=== PATIENT | male | born 1955 | race Caucasian/White ===

== ENCOUNTER 2018-08-06 11:29 | Outpatient (CLI) | payer OTHER ==
--- NOTE | 2018-08-06 12:40 | RAD ---
RIGHT KNEE TWO VIEWS: Comparison: 02-22-15 FINDINGS: There is a donut shaped spacer device associated with the knee joint. This is similar to the prior ex amination. On the lateral view, slightly anterior displaced but similar to the previous study. There are antibiotic implants again noted in the suprapatellar joint space. Vascular calcifications are see n. IMPRESSION: Overall stable exam. POS: TPC
== END 2018-08-06 11:30 | disposition home or self-care (01) ==
LOC: BICRAD 11:29
PROVIDERS: ATTEND Internal Medicine
DX: Z02.71 Encounter for disability determination (principal)

== ENCOUNTER 2018-11-21 16:40 | Inpatient (IN) | payer SELFPAY ==
[2018-11-21] MEDS ORDERED: CEFAZOLIN 2 GM in Premix Bag 1 BAG IVPB SCH (18:15)
[2018-11-21] MEDS ORDERED: Vancomycin HCl 1 GM in Premix Bag 1 BAG IVPB SCH (18:15)
[2018-11-21] MEDS ORDERED: Morphine 4 MG/ML VIAL SLOW IVP PRN (19:31)
[2018-11-21] MEDS ORDERED: Dextrose 50% Abboject 50 ML SYRINGE SLOW IVP PRN (19:31)
[2018-11-21] MEDS ORDERED: Ondansetron ODT 4 MG TAB PO PRN (19:31)
[2018-11-21] MEDS ORDERED: Dextrose 5% in Water 1,000 ML IV PRN (19:31)
[2018-11-21] MEDS ORDERED: Ondansetron PF 4 MG/2 ML Vial IVP PRN (19:31)
[2018-11-21] MEDS ORDERED: hydrALAZINE 20 MG/ML VIAL SLOW IVP PRN (19:31)
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
--- NOTE | 2018-11-21 20:10 | RAD ---
Radiograph right knee 2 views: 11/21/2018 at 6:25 PM HISTORY: 63-year-old male with right knee pain after fall COMPARISON: 08/06/2018 FINDINGS: Large very dense disc shaped spacer between the distal femur and tibial plateau. Flattening, truncate d appearance of distal tibial articular surface. Sclerotic changes at articular surfaces of bone. Antibiotic beads in the supra patellar compartment. No acute fracture. No interval change. IMPRESSION: 1. No interval change since 08/06/2018. 2. Postsurgical changes and antibiotic impregnated objects.
[2018-11-21] MEDS: Famotidine 20 MG TAB PO SCH (20:43)
[2018-11-21] MEDS: Sodium Chloride 0.9% 1,000 ML IV SCH (20:44)
[2018-11-21] MEDS: Morphine 4 MG/ML VIAL SLOW IVP PRN (20:44)
[2018-11-21 22:51] VITALS: BMI 28.1
[2018-11-22] MEDS: Acetaminophen 1,000 MG in Premix Bag 1 BAG IVPB SCH ×4 (00:03→13:32)
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
[2018-11-22] MEDS: Ketorolac Tromethamine 30 MG/ML VIAL IVP SCH ×3 (05:46→13:33)
[2018-11-22] MEDS: Morphine 4 MG/ML VIAL SLOW IVP PRN (05:47)
[2018-11-22] MEDS: Sodium Chloride 0.9% 1,000 ML IV SCH ×2 (05:55→13:10)
[2018-11-22 06:04] LABS: #Basophils 0.1 thou/uL (0.0-0.2); #Eosinphils 0.4 thou/uL (0.0-0.7); #Lymphocytes 3.4 thou/uL (1.20-3.40); #Monocytes 0.9 thou/uL (0.11-0.59); #Neutrophils 4.1 thou/uL (1.40-6.50); %Basophils 0.7 % (0.0-1.0); %Eosinophils 4.6 % (0.0-10.0); %Lymphocytes 38.7 % (21.0-51.0); %Monocytes 9.9 % (0.0-10.0); %Neutrophils 46.1 % (42.0-75.0); Hemoglobin 13.5 g/dL (14.0-18.0); Mean Corpuscular HGB CONC 33.2 g/dL (32.0-36.0); Mean Corpuscular Volume 96.4 fL (78.0-98.0); Mean Platelet Volume 8.2 fL (7.4-10.4); Platelet Count 137 thou/uL (130-400); RBC Distribution Width 14.6 % (11.5-14.5); Red Blood Cell (RBC) Count 4.22 mill/uL (4.70-6.10); White Blood Cell (WBC) Count 8.8 thou/uL (4.8-10.8)
[2018-11-22 06:32] LABS: Anion Gap 12 mmol/L (10-20); BUN (Urea Nitrogen) 26 mg/dL (8.4-25.7); Calc. Creatinine Clearance 119 mL/min (70-130); Calcium 8.5 mg/dL (7.8-10.44); Carbon Dioxide 22 mmol/L (23-31); Chloride 107 mmol/L (98-107); Estimated GFR-MDRD Greater than 90; Glucose 86 mg/dL (80-115); Potassium 3.9 mmol/L (3.5-5.1); Sodium 137 mmol/L (136-145)
[2018-11-22] MEDS ORDERED: Fentanyl 250 MCG/5 ML VIAL ONE (06:54)
[2018-11-22] MEDS ORDERED: Midazolam HCl 2 mg/2 ml Vial ONE (06:54)
[2018-11-22 08:32] LABS: Magnesium 1.9 mg/dL (1.6-2.6); Phosphorus 3.9 mg/dL (2.3-4.7)
[2018-11-22] MEDS: Famotidine 20 MG TAB PO SCH ×2 (08:44→20:01)
[2018-11-22] MEDS ORDERED: Fentanyl 100 MCG/2 ML VIAL ONE (09:57)
[2018-11-22] MEDS ORDERED: Neomycin-Polymyxin 1 ML AMP ONE (10:04)
[2018-11-22] MEDS ORDERED: Promethazine HCl 25 MG/ML VIAL SLOW IVP PRN (11:56)
[2018-11-22] MEDS ORDERED: Ondansetron HCl/PF 4 MG/2 ML Vial IVP PRN (11:56)
[2018-11-22] MEDS ORDERED: Promethazine HCl 25 MG/ML VIAL IM PRN (11:56)
--- NOTE | 2018-11-22 12:14 | RAD ---
Radiograph pelvis one view: 11/22/2018 at 11:51 AM HISTORY: 63-year-old male status post hemiarthroplasty FINDINGS: Metallic prosthesis replacing the right femoral head and neck with stem that reaches junction between proximal and middle thirds of shaft. Lateral skin martínez and subcutaneous emphysema. Satisfactory position. Iliac wings excluded from [id number]. Sclerosis and lucent changes of left femoral head without flattening of femoral head. Left hip joint space maintained. No left-sided hip osteophytes. IMPRESSION: 1. Very recently status post right hip replacement arthroplasty. 2. Avascular necrosis of left femoral head.
--- NOTE | 2018-11-22 12:49 | RAD ---
RIGHT HIP 1 VIEW: HISTORY: Hemiarthroplasty. FINDINGS/IMPRESSION: There are postop changes of right femoral head prostheses placement. POS: OFF
[2018-11-22] MEDS: CEFAZOLIN 2 GM in Premix Bag 1 BAG IVPB SCH ×2 (14:28→20:01)
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
[2018-11-22] MEDS ORDERED: PROPOFOL 200 MG/20 ML VIAL ONE (15:30)
[2018-11-22] MEDS ORDERED: Rocuronium Bromide 10 MG/ML (10ML VIAL) ONE (15:30)
[2018-11-22] MEDS ORDERED: Glycopyrrolate 0.2 MG/ML 5 ML SYRINGE ONE (15:30)
[2018-11-22] MEDS ORDERED: PHENYLEPHRINE-NS 100 MCG/ML 10 ML SYRINGE ONE (15:30)
[2018-11-22] MEDS ORDERED: Lidocaine 1% PF 5 ML VIAL ONE (15:30)
[2018-11-22] MEDS ORDERED: traMADol HCl 50 MG TAB PO PRN (16:12)
[2018-11-22] MEDS ORDERED: Cyclobenzaprine 10 MG TAB PO PRN (16:30)
[2018-11-22] MEDS: Acetaminophen 500 MG TAB PO SCH ×2 (16:47→23:49)
[2018-11-22] MEDS: Ibuprofen 800 MG TAB PO SCH ×2 (17:34→23:59)
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
[2018-11-22] MEDS: traMADol HCl 50 MG TAB PO PRN (19:06)
[2018-11-22] MEDS: Senokot S 8.6-50 MG TAB PO SCH (20:01)
[2018-11-22] MEDS: Aspirin 81 mg Enteric Coated Tablet PO SCH (20:01)
[2018-11-23] MEDS: Acetaminophen 500 MG TAB PO SCH ×4 (03:38→22:50)
[2018-11-23] MEDS: traMADol HCl 50 MG TAB PO PRN ×4 (03:38→22:50)
[2018-11-23 05:55] LABS: #Eosinphils 0.3 thou/uL (0.0-0.7); #Lymphocytes 2.2 thou/uL (1.20-3.40); #Monocytes 0.9 thou/uL (0.11-0.59); #Neutrophils 4.7 thou/uL (1.40-6.50); %Basophils 0.5 % (0.0-1.0); %Eosinophils 3.8 % (0.0-10.0); %Monocytes 10.7 % (0.0-10.0); Hemoglobin 12.1 g/dL (14.0-18.0); Mean Corpuscular HGB CONC 32.8 g/dL (32.0-36.0); Mean Corpuscular Hemoglobin 31.7 pg (27.0-31.0); Mean Corpuscular Volume 96.8 fL (78.0-98.0); Mean Platelet Volume 7.6 fL (7.4-10.4); Platelet Count 127 thou/uL (130-400); RBC Distribution Width 14.3 % (11.5-14.5); Red Blood Cell (RBC) Count 3.81 mill/uL (4.70-6.10)
[2018-11-23 06:18] LABS: Anion Gap 11 mmol/L (10-20); BUN (Urea Nitrogen) 18 mg/dL (8.4-25.7); Calc. Creatinine Clearance 125 mL/min (70-130); Calcium 8.2 mg/dL (7.8-10.44); Carbon Dioxide 20 mmol/L (23-31); Chloride 106 mmol/L (98-107); Estimated GFR-MDRD Greater than 90; Glucose 80 mg/dL (80-115); Magnesium 1.6 mg/dL (1.6-2.6); Sodium 133 mmol/L (136-145)
[2018-11-23] MEDS ORDERED: Magnesium 2 GM/50 ML 2 GM in Premix Bag 1 BAG IVPB SCH (07:30)
[2018-11-23] MEDS ORDERED: PHOS-NAK 1 PKT PACK PO SCH (07:30)
[2018-11-23] MEDS: Ibuprofen 800 MG TAB PO SCH ×2 (08:24→16:34)
[2018-11-23] MEDS: Polyethylene Glycol 3350 17 GM Packet PO SCH (08:24)
[2018-11-23] MEDS: Senokot S 8.6-50 MG TAB PO SCH ×2 (08:24→20:44)
[2018-11-23] MEDS: Aspirin 81 mg Enteric Coated Tablet PO SCH ×2 (08:25→20:43)
[2018-11-23] MEDS: Famotidine 20 MG TAB PO SCH ×2 (08:25→20:43)
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
[2018-11-24] MEDS: Ibuprofen 800 MG TAB PO SCH ×3 (02:25→08:12)
[2018-11-24] MEDS: traMADol HCl 50 MG TAB PO PRN ×2 (04:36→10:34)
[2018-11-24] MEDS: Acetaminophen 500 MG TAB PO SCH ×2 (04:36→10:34)
[2018-11-24] MEDS: Polyethylene Glycol 3350 17 GM Packet PO SCH (08:11)
[2018-11-24] MEDS: Senokot S 8.6-50 MG TAB PO SCH (08:12)
[2018-11-24] MEDS: Aspirin 81 mg Enteric Coated Tablet PO SCH (08:12)
[2018-11-24] MEDS: Famotidine 20 MG TAB PO SCH (08:12)
[2018-11-24 14:47] VITALS: BP 125/75; TEMP 98.1
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
== END 2018-11-24 14:45 | disposition home or self-care (01) | DRG 470 ==
LOC: ERS 16:40 → SURG A 19:10
PROVIDERS: ADMIT Specialist; ATTEND Specialist
PROC: 0SRR0JA Replacement of Right Hip Joint, Femoral Surface with Synthetic Substitute, Uncemented, Open Approach (ICD-10-PCS; principal; 2018-11-22)
DX: S72.001A Fracture of unspecified part of neck of right femur, initial encounter for closed fracture (principal); J44.9 Chronic obstructive pulmonary disease, unspecified; V19.9XXA Pedal cyclist (driver) (passenger) injured in unspecified traffic accident, initial encounter; E11.9 Type 2 diabetes mellitus without complications; F17.210 Nicotine dependence, cigarettes, uncomplicated; E83.39 Other disorders of phosphorus metabolism; E83.42 Hypomagnesemia; Z91.14 Patient's other noncompliance with medication regimen
CPT/HCPCS: 36415; 36416; 72170; 80048; 83735; 84100; 85025; G0390; J0131; J0690; J1885; J2001; J2250; J2270; J2704; J3010; J3370; J3475

== ENCOUNTER 2020-06-18 13:31 | Outpatient (CLI) | payer OTHER ==
[2020-06-18 14:22] LABS: #Eosinphils 0.2 10x3/uL (0.0-0.5); #Monocytes 0.9 10x3/uL (0.0-1.1); #Neutrophils 4.2 10x3/uL (1.5-8.4); %Basophils 0.5 % (0.0-2.0); %Lymphocytes 39.9 % (18.0-47.0); %Monocytes 10.1 % (0.0-10.0); %Neutrophils 47.2 % (40.0-75.0); Hemoglobin 14.4 g/dL (14.0-18.0); Mean Corpuscular Hemoglobin 32.2 PG (27.0-33.0); Mean Corpuscular Volume 94.9 fl (80.0-100.0); Mean Platelet Volume 9.8 fl (7.4-10.4); Platelet Count 180 10x3/uL (130-400); RBC Distribution Width 13.5 % (11.5-14.5); Red Blood Cell (RBC) Count 4.47 10x6/uL (4.40-5.80); White Blood Cell (WBC) Count 8.8 10x3/uL (4.5-11.0)
[2020-06-18 14:41] LABS: Prothrombin Time 10.9 sec (9.5-12.1)
[2020-06-18 15:12] LABS: Anion Gap 16 mmol/L (10-20); BUN (Urea Nitrogen) 19 mg/dL (8.4-25.7); Calc. Creatinine Clearance 0 mL/min (70-130); Calcium 9.2 mg/dL (7.8-10.44); Carbon Dioxide 23 mmol/L (23-31); Chloride 102 mmol/L (98-107); Estimated GFR-MDRD 75; Glucose 183 mg/dL (80-115); Potassium 4.2 mmol/L (3.5-5.1); Sodium 137 mmol/L (136-145)
[2020-06-19 11:01] LABS: SARS-CoV-2 MS2 Positive; SARS-CoV-2 N Gene Negative; SARS-CoV-2 S Gene Negative; SARS-CoV-2 by NAA Not Detected (NotDetected); SARS-CoV-2 orf1ab Negative
== END 2020-06-18 13:32 | disposition home or self-care (01) ==
LOC: LABBT 13:31
PROVIDERS: ATTEND Orthopaedic Surgery
DX: Z01.812 Encounter for preprocedural laboratory examination (principal); Z20.828 Contact with and (suspected) exposure to other viral communicable diseases; M87.052 Idiopathic aseptic necrosis of left femur
CPT/HCPCS: 80048; 85025; 85610; 87081; 87635; U0003

== ENCOUNTER 2020-06-18 16:45 | Inpatient (IN) | payer OTHER ==
[2020-06-21 11:12] VITALS: BMI 28.0
[2020-06-22] MEDS ORDERED: Midazolam HCl 2 mg/2 ml Vial ONE ×2 (07:55→09:33)
[2020-06-22] MEDS ORDERED: Fentanyl 100 MCG/2 ML VIAL ONE ×3 (07:55→11:36)
[2020-06-22] MEDS ORDERED: Vancomycin 1.5 GRAM/300 ML BAG ONE (08:06)
[2020-06-22] MEDS ORDERED: Sodium Chloride 0.9% 100 ML ONE (08:06)
[2020-06-22] MEDS ORDERED: Tranexamic Acid 1,000 MG/10 ML VIAL ONE (08:06)
--- NOTE | 2020-06-22 08:43 | RAD ---
PA AND LATERAL VIEWS CHEST: HISTORY: Preoperative evaluation. FINDINGS: The heart size is normal. The lungs are expanded without focal areas of consolidation, pneumothorace s, or pleural effusions. There are mild degenerative changes in the spine. IMPRESSION: No radiographic evidence of acute cardiopulmonary process. POS: OFF
[2020-06-22] MEDS ORDERED: Bupivacaine 0.25% HCL 30 ML VIAL ONE (09:33)
[2020-06-22] MEDS ORDERED: Acetaminophen 500 MG TAB PO PRN (09:39)
[2020-06-22] MEDS ORDERED: Hydrocerin (Eucerin) Cream 120 gm Jar TOP PRN (09:45)
[2020-06-22] MEDS ORDERED: Promethazine HCl 25 MG SUPP PR PRN (09:45)
[2020-06-22] MEDS ORDERED: HYDROcodone/Acetaminophen 5/325 mg Tablet PO PRN ×2 (09:45)
[2020-06-22] MEDS ORDERED: diphenhydrAMINE 50 MG/ML VIAL IM PRN (09:45)
[2020-06-22] MEDS ORDERED: Naloxone HCl 0.4 mg/ml Vial IV PRN (09:45)
[2020-06-22] MEDS ORDERED: Promethazine HCl 25 MG/ML VIAL IM PRN ×3 (09:45→12:46)
[2020-06-22] MEDS ORDERED: Zolpidem Tartrate 5 MG TAB PO PRN ×2 (09:45→12:46)
[2020-06-22] MEDS ORDERED: Ondansetron PF 4 MG/2 ML Vial IVP PRN ×2 (09:45→12:46)
[2020-06-22] MEDS ORDERED: diphenhydrAMINE 50 MG/ML VIAL IVP PRN (09:45)
[2020-06-22] MEDS ORDERED: diphenhydrAMINE 25 MG CAP PO PRN ×2 (09:45→12:46)
[2020-06-22] MEDS ORDERED: traMADol HCl 50 MG TAB PO PRN ×3 (09:45→12:46)
[2020-06-22] MEDS ORDERED: Naloxone HCl 0.4 mg/ml Vial IVP PRN (09:45)
[2020-06-22] MEDS ORDERED: Ondansetron HCl/PF 4 MG/2 ML Vial IVP PRN (11:37)
[2020-06-22] MEDS ORDERED: Promethazine HCl 25 MG/ML VIAL SLOW IVP PRN (11:37)
[2020-06-22] MEDS ORDERED: Glycopyrrolate 0.2 MG/ML 5 ML SYRINGE ONE (11:56)
[2020-06-22] MEDS ORDERED: Ondansetron PF 4 MG/2 ML Vial ONE (11:56)
[2020-06-22] MEDS ORDERED: Dexamethasone 20 MG/5 ML VIAL ONE (11:56)
[2020-06-22] MEDS ORDERED: PHENYLEPHRINE-NS 100 MCG/ML 10 ML SYRINGE ONE (11:56)
[2020-06-22] MEDS ORDERED: PROPOFOL 200 MG/20 ML VIAL ONE (11:56)
[2020-06-22] MEDS ORDERED: Lidocaine 1% PF 5 ML VIAL ONE (11:56)
[2020-06-22] MEDS ORDERED: Rocuronium Bromide 10 MG/ML (10ML VIAL) ONE (11:56)
[2020-06-22] MEDS ORDERED: Lidocaine 1.5% w/Epi 1:200K 30 ML VIAL (Epid Use) ONE (11:57)
[2020-06-22] MEDS ORDERED: Ketorolac Tromethamine 30 MG/ML VIAL IVP PRN (12:46)
[2020-06-22] MEDS ORDERED: HYDROcodone/Acetaminophen 10/325 mg Tablet PO PRN ×2 (12:46)
[2020-06-22] MEDS ORDERED: Acetaminophen 325 MG TAB PO PRN (12:46)
[2020-06-22] MEDS ORDERED: Fentanyl 100 MCG/2 ML VIAL SLOW IVP PRN ×2 (12:46)
--- NOTE | 2020-06-22 13:45 | RAD ---
Exam: Left hip one view: HISTORY: Recent postop total hip replacement COMPARISON: None FINDINGS: No dislocation or periprostatic fracture. IMPRESSION: Status post total hip replacement
--- NOTE | 2020-06-22 13:46 | RAD ---
Exam: AP pelvis one view: HISTORY: Recent status post left total hip replacement COMPARISON: 11/22/2018 FINDINGS: Prior right total hip replacement changes. Recent left total hip replacement changes without dislocation or periprostatic fracture. IMPRESSION: Status post recent left total hip replacement.
[2020-06-22] MEDS ORDERED: Ketorolac Tromethamine 30 MG/ML VIAL ONE (16:08)
[2020-06-22] MEDS: Ketorolac Tromethamine 30 MG/ML VIAL IVP SCH ×3 (18:15→23:48)
[2020-06-22] MEDS: Sodium Chloride 0.9% 1,000 ML IV SCH ×2 (18:16→23:05)
[2020-06-22] MEDS: CEFAZOLIN 2 GM in Premix Bag 1 BAG IVPB SCH (18:34)
[2020-06-22] MEDS ORDERED: Dextrose 50% Abboject 50 ML SYRINGE SLOW IVP PRN (18:34)
[2020-06-22] MEDS ORDERED: Dextrose 5% in Water 1,000 ML IV PRN (18:34)
[2020-06-22 19:07] LABS: #Lymphocytes 1.6 thou/uL (1.20-3.40); #Monocytes 0.3 thou/uL (0.11-0.59); #Neutrophils 9.6 thou/uL (1.40-6.50); %Basophils 0.3 % (0.0-1.0); %Eosinophils 0.1 % (0.0-10.0); %Lymphocytes 13.7 % (21.0-51.0); %Neutrophils 82.9 % (42.0-75.0); Hemoglobin 13.5 g/dL (14.0-18.0); Mean Corpuscular HGB CONC 33.8 g/dL (32.0-36.0); Mean Corpuscular Hemoglobin 32.9 pg (27.0-31.0); Mean Corpuscular Volume 97.3 fL (78.0-98.0); Mean Platelet Volume 7.1 fL (7.4-10.4); Platelet Count 160 thou/uL (130-400); RBC Distribution Width 13.1 % (11.5-14.5); White Blood Cell (WBC) Count 11.6 thou/uL (4.8-10.8)
[2020-06-22 19:17] LABS: ALT (SGPT) 11 U/L (8-55); AST (SGOT) 14 U/L (5-34); Albumin 3.5 g/dL (3.4-4.8); Alkaline Phosphatase 58 U/L (40-110); Anion Gap 12 mmol/L (10-20); BUN (Urea Nitrogen) 22 mg/dL (8.4-25.7); Bilirubin, Total 0.5 mg/dL (0.2-1.2); Calc. Creatinine Clearance 92 mL/min (70-130); Calcium 8.4 mg/dL (7.8-10.44); Carbon Dioxide 24 mmol/L (23-31); Chloride 103 mmol/L (98-107); Estimated GFR-MDRD 75; Glucose 162 mg/dL (80-115); Magnesium 1.6 mg/dL (1.6-2.6); Potassium 4.5 mmol/L (3.5-5.1); Protein, Total 6.5 g/dL (5.8-8.1); Sodium 134 mmol/L (136-145)
[2020-06-22] MEDS ORDERED: Vancomycin HCl 1.5 GM in Sodium Chloride 0.9% 250 ML 300 ML IVPB SCH (20:00)
[2020-06-22] MEDS ORDERED: Vancomycin 1.5 GRAM/300 ML BAG 1.5 GM in Premix Bag 1 BAG IVPB SCH (20:00)
[2020-06-22] MEDS: Ferrous Gluconate 324 MG TAB PO SCH (20:41)
[2020-06-22] MEDS: Senokot S 8.6-50 MG TAB PO SCH (20:42)
[2020-06-22] MEDS: Aspirin 81 mg Enteric Coated Tablet PO SCH (20:42)
[2020-06-22] MEDS ORDERED: Cepastat Lozenges 1 LOZ PO PRN (21:25)
--- NOTE | 2020-06-23 02:28 | PDOC.HHP ---
Hospitalist HPI - History of Present Illness History of Present Illness: CONSULTATION NOTE DATE OF CONSULTATION: 06/22/2020 TIME OF ASSESSMENT: 1800 REFERRING PHYSICIAN: Dr. Silva REASON FOR CONSULTATION: Medical management PRIMARY CARE PHYSICIAN: None CHIEF COMPLAINT: Sore throat HPI: This is a 64-year-old gentleman who is status post a left total hip replacement and has been referred to us for medical management. Patient states that he has some mild soreness in his throat since surgery. This has not been relieved with eating ice chips or drinking water. He has eaten dinner and denies any nausea or vomiting. He tolerated p.o. intake well since surgery. He denies having any significant pain at this present time. Overall he is feeling well and currently without any complaints. Pelvic x-ray done postoperatively showed changes consistent with left total hip replacement. PAST MEDICAL HISTORY: 1. COPD 2. Diabetes mellitus 3. "Kidney problems" PAST SURGICAL HISTORY: 1. Right knee sebaceous cyst removed 2. Right knee surgery x5 for various complaints including infections 3. Left ankle surgery 4. Right knee antibiotic spacer placement 5. "Artery placed in right upper thigh from left thigh" 6. Peritoneal dialysis 7. History of right total hip replacement. 8. Left total hip replacement 06/22/2020 SOCIAL HISTORY: Patient reports smoking half a pack a day and is working on quitting. Denies any alcohol consumption since 2017 when he quit drinking. No drug use. FAMILY HISTORY: Noncontributory ALLERGIES: No known drug allergies CURRENT MEDICATIONS: 1. Furosemide 20 mg p.o. daily 2. Tramadol 50 mg p.o. every 6 hours as needed for pain. Hospitalist ROS - Medication Medications: Active Medications Generic Name Dose Route Start Last Admin Trade Name Nixon PRN Reason Stop Dose Admin Aspirin 81 mg 06/22/20 21:00 06/22/20 20:42 Aspirin 81 Mg Enteric Coated Tablet PO 81 mg BID WINDY Administration Ferrous Gluconate 324 mg 06/22/20 21:00 06/22/20 20:41 Ferrous Gluconate 324 Mg Tab PO 324 mg BID WINDY Administration Sodium Chloride 1,000 mls @ 100 mls/hr 06/22/20 12:46 06/22/20 23:05 Normal Saline 0.9% IV Not Given .Q10H WINDY Cefazolin Sodium/Dextrose 2 gm 50 mls @ 100 mls/hr 06/22/20 18:00 06/22/20 18:34 / Device IVPB 06/23/20 02:29 50 mls 0200,1000,1800 WINDY Administration Ketorolac Tromethamine 30 mg 06/22/20 12:00 06/22/20 23:48 Ketorolac Tromethamine 30 Mg/Ml Vial IVP 06/24/20 06:01 30 mg Q6HR WINDY Administration Senna/Docusate Sodium 2 tab 06/22/20 21:00 06/22/20 20:42 Senokot S 8.6-50 Mg Tab PO 2 tab BID WINDY Administration Throat Lozenges 1 abiel 06/22/20 21:25 06/22/20 23:52 Cepastat Lozenges 1 Abiel PO 1 abiel Q2H PRN Administration Sore Throat - Exam General Appearance: NAD, awake alert General - other findings: VS: Temp 98.5, HR 98, BP 131/73, O2 sat 96% on room air Eye: PERRL, anicteric sclera ENT: normocephalic atraumatic, no oropharyngeal lesions Neck: supple Heart: RRR, normal peripheral pulses Respiratory: CTAB, no wheezes, no rales, normal chest expansion, no tachypnea Gastrointestinal: soft, non-tender, non-distended, normal bowel sounds Extremities: no edema Skin: normal turgor, no lesions, no rashes Neurological: cranial nerve grossly intact, normal sensation to touch Musculoskeletal: normal tone, normal strength, no muscle wasting Psychiatric: normal affect, normal behavior, A&O x 3 Hospitalist Results - Labs Result Diagrams: 06/22/20 18:54 06/22/20 18:54 Lab results: WBC 11.6 thou/uL (4.8-10.8) H 06/22/20 18:54 Hgb 13.5 g/dL (14.0-18.0) L 06/22/20 18:54 Hct 39.9 % (42.0-52.0) L 06/22/20 18:54 MCV 97.3 fL (78.0-98.0) 06/22/20 18:54 Plt Count 160 thou/uL (130-400) 06/22/20 18:54 Neutrophils % 82.9 % (42.0-75.0) H 06/22/20 18:54 Sodium 134 mmol/L (136-145) L 06/22/20 18:54 Potassium 4.5 mmol/L (3.5-5.1) 06/22/20 18:54 Chloride 103 mmol/L (98-107) 06/22/20 18:54 Carbon Dioxide 24 mmol/L (23-31) 06/22/20 18:54 BUN 22 mg/dL (8.4-25.7) 06/22/20 18:54 Creatinine 1.01 mg/dL (0.7-1.3) 06/22/20 18:54 Glucose 162 mg/dL (80-115) H 06/22/20 18:54 Calcium 8.4 mg/dL (7.8-10.44) 06/22/20 18:54 Total Bilirubin 0.5 mg/dL (0.2-1.2) 06/22/20 18:54 AST 14 U/L (5-34) 06/22/20 18:54 ALT 11 U/L (8-55) 06/22/20 18:54 Alkaline Phosphatase 58 U/L (40-110) 06/22/20 18:54 B-Natriuretic Peptide 17.8 pg/mL (0-100) 06/22/20 18:54 Serum Total Protein 6.5 g/dL (5.8-8.1) 06/22/20 18:54 Albumin 3.5 g/dL (3.4-4.8) 06/22/20 18:54 Hospitalist H&P A/P - Problem (1) Status post left hip replacement Code(s): Z96.642 - PRESENCE OF LEFT ARTIFICIAL HIP JOINT Status: Acute (2) COPD (chronic obstructive pulmonary disease) Status: Chronic (3) Diabetes mellitus Code(s): E11.9 - TYPE 2 DIABETES MELLITUS WITHOUT COMPLICATIONS Status: Chronic - Plan Plan: Monitor glucose (Accuchecks ACHS) Insulin sliding scale initiated Monitor O2 sats PRN Duonebs. Tobacco cessation Monitor BP. Obtain repeat labs Resume home medications GI prophylaxis with Famotidine DVT Prophylaxis with mechanical SCDs CODE STATUS FULL Case discussed with attending. Thank you for this consultation we will continue to follow the patient with you.
[2020-06-23] MEDS: CEFAZOLIN 2 GM in Premix Bag 1 BAG IVPB SCH (02:54)
[2020-06-23] MEDS: fentaNYL Citrate/PF 500 MCG, Bupivacaine 10 ML in Sodium Chloride 0.9% 80 ML EPIDURAL SCH ×2 (04:57→21:04)
[2020-06-23] MEDS: Ketorolac Tromethamine 30 MG/ML VIAL IVP SCH ×4 (05:02→23:09)
[2020-06-23 06:35] LABS: Hemoglobin 12.1 g/dL (14.0-18.0); Mean Corpuscular HGB CONC 33.3 g/dL (32.0-36.0); Mean Corpuscular Volume 99.2 fL (78.0-98.0); Mean Platelet Volume 7.2 fL (7.4-10.4); Platelet Count 136 thou/uL (130-400); RBC Distribution Width 13.1 % (11.5-14.5); Red Blood Cell (RBC) Count 3.66 mill/uL (4.70-6.10); White Blood Cell (WBC) Count 12.6 thou/uL (4.8-10.8)
--- NOTE | 2020-06-23 07:16 | OP ---
DATE OF PROCEDURE: 06/22/2020 PREOPERATIVE DIAGNOSIS: Left hip avascular necrosis. POSTOPERATIVE DIAGNOSIS: Left hip avascular necrosis. PROCEDURE PERFORMED: Left total hip arthroplasty. DOUGH BRAKE MACHINE OPERATOR: Chris Adame. ANESTHESIA: Dr. Lund. The patient received a general intubation with epidural. ESTIMATED BLOOD LOSS: 250 mL. TOURNIQUET TIME: None. ANTIBIOTICS: Ancef 2 g, vancomycin 1.5, TXA 1. IMPLANTS: Марина Trident X3 10-degree poly 36 mm, Biolox Delta ceramic head 36 mm +0, Trident II Tritanium acetabular shell 52 mm, and Accolade II 130 degrees, size 4 stem. COMPLICATIONS: None. HISTORY OF PRESENT ILLNESS: Mr. Juarez is a 64-year-old male with history of heavy drinking. The patient had severe pain of the left hip with motion, previously had hemiarthroplasty for femoral neck fracture of the right hip as well as antibiotic spacer for infected right knee. I discussed with him the risks and benefits of left total hip arthroplasty to include pain, scar, bleeding, infection, damage to vital structures, decreased range of motion and strength, continued pain despite surgical intervention, loss of life or limb. I discussed that I would like him not to smoke and control the diabetes for improved outcome. We discussed risks and benefits of surgery. He elected to proceed. DESCRIPTION OF PROCEDURE: Time-out was performed designating the patient's left lower extremity as the operative site based on site, consents, and marking. He was placed in lateral position with bony prominences well padded, axillary roll in place. We made a lateral incision down through skin, bluntly dissected down, came to the IT band, which was split. Took the gluteus medius and minimus off for tenotomy, T'd the capsule, tied it on both sides, dislocated the hip, cut the femoral neck, and placed our acetabular retractors. We reamed up to a 52, which we seated well and medialized. We used an osteotome, knocked off a little bit of osteophyte anteriorly as well as anterior acetabulum to ensure no impingement. We placed our poly into place and moved back to the femur. We broached, starting with a 0 up to a 4 stem, trialed with a standard, reduced into place, I liked the overall alignment, shuck and position. We took a size 4 stem, trialed it with a -2.5 and felt the standard was more appropriate, so we placed a size 4 stem with a standard 36 mm ceramic head, reduced into place, washed, closed the T'd capsule, closed the medius and minimus with a #5 drill through a drill hole up and down back through drill hole over the top, I closed with #2 Vicryls #2 Stratafix, 0 Stratafix, 3-0 Stratafix and glue. The patient will be weightbearing as tolerated. I will see him back in my clinic. I will see him back in the morning. We will consult Medicine for medical management for possible DTs and diabetic management. My insurance claims assistant helped with the positioning, exposure, retraction of the vital structures, cutting the femoral head and reaming the acetabulum, placement of trials, placement of implants, sequential closure, and moving the patient to the side of the bed. Job ID: [id number] MTDD
[2020-06-23] MEDS: Multivitamin W/ Minerals 1 TAB PO SCH (10:24)
[2020-06-23] MEDS: Ferrous Gluconate 324 MG TAB PO SCH ×2 (10:24→21:04)
[2020-06-23] MEDS: Senokot S 8.6-50 MG TAB PO SCH ×2 (10:24→21:03)
[2020-06-23] MEDS: Furosemide 20 MG TAB PO SCH (10:24)
[2020-06-23] MEDS: Aspirin 81 mg Enteric Coated Tablet PO SCH ×2 (10:24→21:03)
[2020-06-23] MEDS: Sodium Chloride 0.9% 1,000 ML IV SCH ×2 (10:25→18:43)
[2020-06-23] MEDS ORDERED: Calcium Carbonate 500 MG ChewTAB PO PRN (12:07)
--- NOTE | 2020-06-23 15:08 | PDOC.HOSPP ---
- Subjective Encounter Date: 06/23/20 Encounter Time: 15:10 Subjective: f/u for general med mgmt s/p L NEYMAR POD #1 due to avascular necrosis. Some pain in LLE. Breathing ok on RA. Overall feeling good. - Objective Vital Signs & Weight: Vital Signs (12 hours) Temp Pulse Resp BP Pulse Ox 06/23/20 11:20 98.0 F 76 18 122/65 98 06/23/20 11:00 97 06/23/20 07:27 98.2 F 82 18 122/54 L 97 06/23/20 03:29 98.3 F 84 16 105/62 95 Weight Admit Weight 190 lb Weight 190 lb I&O: 06/22/20 06/23/20 06/24/20 06:59 06:59 06:59 Intake Total 1737 Output Total 1350 Balance 387 Result Diagrams: 06/23/20 06:13 06/22/20 18:54 Additional Labs: Accuchecks 06/23/20 06/23/20 06/22/20 11:16 05:20 20:13 POC Glucose 123 H 153 H 155 H 06/22/20 18:11 POC Glucose 186 H Hospitalist ROS - Medication Medications: Active Medications Generic Name Dose Route Start Last Admin Trade Name Freq PRN Reason Stop Dose Admin Aspirin 81 mg 06/22/20 21:00 06/23/20 10:24 Aspirin 81 Mg Enteric Coated Tablet PO 81 mg BID WINDY Administration Calcium Carbonate 1,000 mg 06/23/20 12:07 06/23/20 12:13 Calcium Carbonate 500 Mg Chewtab PO 1,000 mg Q4H PRN Administration Indigestion Ferrous Gluconate 324 mg 06/22/20 21:00 06/23/20 10:24 Ferrous Gluconate 324 Mg Tab PO 324 mg BID WINDY Administration Furosemide 20 mg 06/23/20 09:00 06/23/20 10:24 Furosemide 20 Mg Tab PO 20 mg DAILY WINDY Administration Fentanyl Citrate 500 mcg/ 100 mls @ 6 mls/hr 06/22/20 09:45 06/23/20 04:57 Bupivacaine HCl 10 ml/ Sodium EPIDURAL 100 mls Chloride INF WINDY Administration Sodium Chloride 1,000 mls @ 100 mls/hr 06/22/20 12:46 06/23/20 10:25 Normal Saline 0.9% IV Not Given .Q10H WINDY Iron/Minerals/Multivitamins 1 tab 06/23/20 09:00 06/23/20 10:24 Multivitamin W/ Minerals 1 Tab PO 1 tab DAILY WINDY Administration Ketorolac Tromethamine 30 mg 06/22/20 12:00 06/23/20 12:13 Ketorolac Tromethamine 30 Mg/Ml Vial IVP 06/24/20 06:01 30 mg Q6HR WINDY Administration Senna/Docusate Sodium 2 tab 06/22/20 21:00 06/23/20 10:24 Senokot S 8.6-50 Mg Tab PO 2 tab BID WINDY Administration Sodium Chloride 10 ml 06/22/20 12:46 06/23/20 12:15 Flush - Normal Saline 10 Ml Syringe IVF 10 ml PRN PRN Administration Saline Flush Throat Lozenges 1 abiel 06/22/20 21:25 06/22/20 23:52 Cepastat Lozenges 1 Abiel PO 1 abiel Q2H PRN Administration Sore Throat - Exam General Appearance: NAD, awake alert Eye: PERRL, anicteric sclera ENT: normocephalic atraumatic, no oropharyngeal lesions Neck: supple, symmetric, no JVD, no thyromegaly, no lymphadenopathy Heart: RRR, no murmur, no gallops, no rubs, normal peripheral pulses Heart - other findings: S1, S2 Respiratory: no ronchi, normal chest expansion, no tachypnea Respiratory - other findings: few exp wheezes o/w clear Gastrointestinal: soft, non-tender, non-distended, normal bowel sounds, no palpable masses Extremities: no cyanosis Extremities - other findings: L hip with surgical dressing in place Skin: normal turgor Neurological: cranial nerve grossly intact, no new deficit Musculoskeletal: normal tone, normal strength Psychiatric: normal affect, A&O x 3 Hosp A/P (1) Diabetes mellitus Code(s): E11.9 - TYPE 2 DIABETES MELLITUS WITHOUT COMPLICATIONS Status: Chronic Qualifiers: Diabetes mellitus type: type 2 Plan: Add ISS, serial accuchecks, A1C in am, ADA (2) COPD (chronic obstructive pulmonary disease) Status: Chronic Plan: Remains on RA, Duonebs PRN, IS at bedside (3) Tobacco abuse Code(s): Z72.0 - TOBACCO USE Status: Chronic Plan: Tobacco cessation resources (4) Hyponatremia Code(s): E87.1 - HYPO-OSMOLALITY AND HYPONATREMIA Status: Chronic Plan: Continue supportive mgmt, encourage regular dietary intake - Plan PT/OT, nursing home social worker, incentive spirometry, out of bed/ambulate, DVT proph w/SCDs Stable currently Continue routine post-op [facility] protocol Pain control as indicated Incentive Spirometry Add ISS Smoking cessation resources OOB/PT AM lab: CBC, A1C
[2020-06-23] MEDS ORDERED: Dextrose 50% Abboject 50 ML SYRINGE SLOW IVP PRN (15:11)
[2020-06-23] MEDS ORDERED: Dextrose 5% in Water 1,000 ML IV PRN (15:11)
[2020-06-23] MEDS ORDERED: HumaLOG 300 UNITS/3 ML VIAL SC PRN ×2 (15:11)
[2020-06-24] MEDS: Sodium Chloride 0.9% 1,000 ML IV SCH (04:02)
[2020-06-24 05:05] LABS: Hemoglobin 12.6 g/dL (14.0-18.0); Mean Corpuscular HGB CONC 33.2 g/dL (32.0-36.0); Mean Corpuscular Hemoglobin 32.4 pg (27.0-31.0); Mean Corpuscular Volume 97.8 fL (78.0-98.0); Mean Platelet Volume 6.9 fL (7.4-10.4); Platelet Count 123 thou/uL (130-400); RBC Distribution Width 13.2 % (11.5-14.5); Red Blood Cell (RBC) Count 3.87 mill/uL (4.70-6.10); White Blood Cell (WBC) Count 9.8 thou/uL (4.8-10.8)
[2020-06-24 05:13] LABS: Hemoglobin A1c 6.8 % (4.0-6.0)
[2020-06-24] MEDS: Ketorolac Tromethamine 30 MG/ML VIAL IVP SCH (05:21)
[2020-06-24] MEDS: Multivitamin W/ Minerals 1 TAB PO SCH (08:53)
[2020-06-24] MEDS: Furosemide 20 MG TAB PO SCH (08:53)
[2020-06-24] MEDS: Ferrous Gluconate 324 MG TAB PO SCH (08:53)
[2020-06-24] MEDS: Aspirin 81 mg Enteric Coated Tablet PO SCH (08:53)
[2020-06-24] MEDS: Senokot S 8.6-50 MG TAB PO SCH (08:54)
[2020-06-24] MEDS ORDERED: HYDROcodone/Acetaminophen 10/325 mg Tablet PO PRN (09:45)
[2020-06-24] MEDS: HYDROcodone/Acetaminophen 10/325 mg Tablet PO PRN ×2 (09:54→14:02)
--- NOTE | 2020-06-24 11:28 | PDOC.HOSPP ---
- Subjective Encounter Date: 06/24/20 Encounter Time: 08:35 Subjective: Patient seen and examined bedside today, patient is doing much better after surgery, he walked almost 500 feet and he is planned for discharge today - Objective Vital Signs & Weight: Vital Signs (12 hours) Temp Pulse Resp BP Pulse Ox 06/24/20 04:16 97.7 F 74 19 144/77 H 97 06/24/20 00:04 98.2 F 75 19 144/67 H 94 L Weight Admit Weight 190 lb Weight 190 lb I&O: 06/23/20 06/24/20 06/25/20 06:59 06:59 06:59 Intake Total 1737 1850 Output Total 1350 3350 Balance 387 -1500 Result Diagrams: 06/24/20 04:47 06/22/20 18:54 Additional Labs: Accuchecks 06/24/20 06/24/20 06/23/20 10:47 05:57 20:18 POC Glucose 116 H 110 H 141 H 06/23/20 16:05 POC Glucose 141 H Hospitalist ROS - Review of Systems ENT: denies: ear pain, ear discharge, nose pain, nose discharge, nose congestion, mouth pain, mouth swelling, throat pain, throat swelling, other Respiratory: denies: cough, dry, shortness of breath, hemoptysis, SOB with excertion, pleuritic pain, sputum, wheezing, other Cardiovascular: denies: chest pain, palpitations, orthopnea, paroxysmal noc. dyspnea, edema, light headedness, other Gastrointestinal: denies: nausea, vomiting, abdominal pain, diarrhea, constipation, melena, hematochezia, other Genitourinary: denies: dysuria, frequency, incontinence, hematuria, retention, other - Medication Medications: Active Medications Generic Name Dose Route Start Last Admin Trade Name Freq PRN Reason Stop Dose Admin Hydrocodone Bitart/Acetaminophen 2 tab 06/24/20 09:45 06/24/20 09:54 Hydrocodone/Acetaminophen 10/325 Mg Tablet PO 2 tab Q4H PRN Administration PAIN SCALE 6-10 Aspirin 81 mg 06/22/20 21:00 06/24/20 08:53 Aspirin 81 Mg Enteric Coated Tablet PO 81 mg BID WINDY Administration Calcium Carbonate 1,000 mg 06/23/20 12:07 06/23/20 12:13 Calcium Carbonate 500 Mg Chewtab PO 1,000 mg Q4H PRN Administration Indigestion Ferrous Gluconate 324 mg 06/22/20 21:00 06/24/20 08:53 Ferrous Gluconate 324 Mg Tab PO 324 mg BID WINDY Administration Furosemide 20 mg 06/23/20 09:00 06/24/20 08:53 Furosemide 20 Mg Tab PO 20 mg DAILY WINDY Administration Sodium Chloride 1,000 mls @ 100 mls/hr 06/22/20 12:46 06/24/20 04:02 Normal Saline 0.9% IV Not Given .Q10H WINDY Iron/Minerals/Multivitamins 1 tab 06/23/20 09:00 06/24/20 08:53 Multivitamin W/ Minerals 1 Tab PO 1 tab DAILY WINDY Administration Senna/Docusate Sodium 2 tab 06/22/20 21:00 06/24/20 08:54 Senokot S 8.6-50 Mg Tab PO Not Given BID WINDY Sodium Chloride 10 ml 06/22/20 12:46 06/23/20 12:15 Flush - Normal Saline 10 Ml Syringe IVF 10 ml PRN PRN Administration Saline Flush Throat Lozenges 1 abiel 06/22/20 21:25 06/22/20 23:52 Cepastat Lozenges 1 Abiel PO 1 abiel Q2H PRN Administration Sore Throat - Exam General Appearance: NAD, awake alert Eye: PERRL, anicteric sclera ENT: normocephalic atraumatic, no oropharyngeal lesions Neck: supple, symmetric, no JVD, no thyromegaly Heart: RRR, no murmur, no gallops, no rubs Respiratory: CTAB, no wheezes, no rales, no ronchi Gastrointestinal: soft, non-tender, non-distended, normal bowel sounds Extremities: no cyanosis, no clubbing, no edema Skin: normal turgor, no lesions Neurological: no focal deficits Musculoskeletal: normal tone, normal strength Psychiatric: normal affect, normal behavior Hosp A/P (1) Status post left hip replacement Code(s): Z96.642 - PRESENCE OF LEFT ARTIFICIAL HIP JOINT Status: Acute (2) COPD (chronic obstructive pulmonary disease) Status: Chronic (3) Diabetes mellitus Code(s): E11.9 - TYPE 2 DIABETES MELLITUS WITHOUT COMPLICATIONS Status: Chronic Qualifiers: Diabetes mellitus type: type 2 (4) Tobacco abuse Code(s): Z72.0 - TOBACCO USE Status: Chronic (5) Thrombocytopenia Code(s): D69.6 - THROMBOCYTOPENIA, UNSPECIFIED Status: Acute (6) Cirrhosis Code(s): K74.60 - UNSPECIFIED CIRRHOSIS OF LIVER Status: Chronic - Plan old records reviewed/req Medication reviewed and continue provide symptomatic and supportive care Patient is plan for discharge Patient will resume all his previous medication We will sign off
[2020-06-24 11:48] VITALS: BP 128/73; TEMP 97.8
--- NOTE | 2020-06-24 12:33 | PDOC.DS.DS ---
Provider - Provider Date of Admission: 06/22/20 06:50 Date of Discharge: 06/24/20 Admitting Provider: Harjeet Silva MD Consultations: Orthopedics Primary Care Physician: FAY COLEMAN Course - Hospital Course Hospital Course: Patient was admitted for left total hip replacement by orthopedic physician, medical team was consulted for medical management, postoperatively patient was doing well, patient is planned for discharge today - Labs Lab Results: 06/24/20 04:47 06/22/20 18:54 Abnormal Lab Results - Last 48 hrs 06/22/20 18:54: Sodium 134 L 06/22/20 18:54: WBC 11.6 H, RBC 4.10 L, Hgb 13.5 L, Hct 39.9 L, MCH 32.9 H, MPV 7.1 L, Neutrophils % 82.9 H, Lymphocytes % 13.7 L, Neutrophils # 9.6 H 06/23/20 06:13: WBC 12.6 H, RBC 3.66 L, Hgb 12.1 L, Hct 36.3 L, MCV 99.2 H, MCH 33.0 H, MPV 7.2 L 06/24/20 04:47: RBC 3.87 L, Hgb 12.6 L, Hct 37.9 L, MCH 32.4 H, Plt Count 123 L, MPV 6.9 L 06/24/20 04:47: Hemoglobin A1c 6.8 H - Physical Exam Vitals: Vital Signs (12 hours) Temp Pulse Resp BP Pulse Ox 06/24/20 10:44 97.8 F 79 16 128/73 95 06/24/20 04:16 97.7 F 74 19 144/77 H 97 Weight Admit Weight 190 lb Weight 190 lb Physical Exam: The patient was seen and examined on the day of discharge. Problem - Problem (1) Status post left hip replacement Code(s): Z96.642 - PRESENCE OF LEFT ARTIFICIAL HIP JOINT Status: Acute (2) COPD (chronic obstructive pulmonary disease) Status: Chronic (3) Diabetes mellitus Code(s): E11.9 - TYPE 2 DIABETES MELLITUS WITHOUT COMPLICATIONS Status: Chronic Qualifiers: Diabetes mellitus type: type 2 (4) Tobacco abuse Code(s): Z72.0 - TOBACCO USE Status: Chronic (5) Thrombocytopenia Code(s): D69.6 - THROMBOCYTOPENIA, UNSPECIFIED Status: Acute (6) Cirrhosis Code(s): K74.60 - UNSPECIFIED CIRRHOSIS OF LIVER Status: Chronic Plan - Discharge Medications Home Medications: Medication Instructions Recorded Confirmed Type traMADol HCl [Ultram] 50 mg PO Q6HR PRN 11/24/18 06/22/20 History Furosemide [Lasix] 20 mg PO DAILY 06/21/20 06/22/20 History Aspirin [Ecotrin Low Strength] 81 mg PO BID tab 06/24/20 Rx HYDROcodone Bit/APAP [[place]] 1 - 2 tab PO Q4HR PRN 06/24/20 06/24/20 History Allergies: No Known Drug Allergies Allergy (Verified 06/22/20 18:47) PER ER REPORT - Discharge Instructions Discharge Instructions:: DO NOT DRIVE OR OPERATE MACHINERY WHILE ON NARCOTIC PAIN MEDICINE, USE YOUR WALKER FOR TRANSFERS AND AMBULATION, USE YOUR IS 10X EVERY 4 HOURS WHILE AWAKE FOR 2 MORE WEEKS, TAKE ALL MEDS DIRECTED BY YOUR PHYSICIAN, CALL MD'S OFFICE FOR QUESTIONS AND CONCERNS. Activity:: Activity as Tolerated, Orthopedic Limitations Nourishment:: Heart Healthy Diet Therapies:: Not Applicable Equipment/Supplies:: Not Applicable IV Therapy:: Not Applicable - Follow up Plan Referrals: Outpatient, Outpatient Physical Therapy of Patient Choice [Other] - 1 Day (Call to set up Outpatient Physical Therapy as needed per patient choice.) FAY COLEMAN [Primary Care Provider] - (CALL MD'S OFFICE FOR MEDICAL PROBLEMS.) Disposition: HOME Quality - Care Measures CORE MEASURES:: N/A
== END 2020-06-24 14:10 | disposition home or self-care (01) | DRG 470 ==
LOC: SURG A 06-22 06:50
PROVIDERS: ADMIT Orthopaedic Surgery; ATTEND Internal Medicine
PROC: 0SRB04Z Replacement of Left Hip Joint with Ceramic on Polyethylene Synthetic Substitute, Open Approach (ICD-10-PCS; principal; 2020-06-22)
DX: M87.852 Other osteonecrosis, left femur (principal); E87.1 Hypo-osmolality and hyponatremia; Z20.828 Contact with and (suspected) exposure to other viral communicable diseases; F17.210 Nicotine dependence, cigarettes, uncomplicated; J44.9 Chronic obstructive pulmonary disease, unspecified; G43.909 Migraine, unspecified, not intractable, without status migrainosus; E11.51 Type 2 diabetes mellitus with diabetic peripheral angiopathy without gangrene; D69.6 Thrombocytopenia, unspecified; K74.60 Unspecified cirrhosis of liver; Z96.641 Presence of right artificial hip joint; Z79.4 Long term (current) use of insulin; Z79.899 Other long term (current) drug therapy
CPT/HCPCS: 36415; 36416; 71046; 72170; 80053; 83036; 83735; 83880; 85025; 85027; J0690; J1100; J1885; J2001; J2250; J2405; J2704; J3010; J3370; J3490; S0020

== ENCOUNTER 2020-11-01 08:54 | Outpatient (CLI) | payer OTHER ==
[2020-11-01 10:52] LABS: #Eosinphils 0.2 10x3/uL (0.0-0.5); #Monocytes 0.8 10x3/uL (0.0-1.1); #Neutrophils 4.3 10x3/uL (1.5-8.4); %Basophils 0.5 % (0.0-2.0); %Eosinophils 2.9 % (0.0-6.0); %Lymphocytes 33.5 % (18.0-47.0); %Monocytes 9.8 % (0.0-10.0); %Neutrophils 53.1 % (40.0-75.0); Hemoglobin 14.6 g/dL (13.5-17.5); Mean Corpuscular HGB CONC 32.8 g/dL (32.0-36.0); Mean Corpuscular Hemoglobin 31.5 pg (27.0-33.0); Mean Corpuscular Volume 95.9 fl (81.2-95.1); Mean Platelet Volume 9.7 fl (7.4-10.4); Platelet Count 203 10x3/uL (150-450); RBC Distribution Width 13.2 % (11.5-14.5); Red Blood Cell (RBC) Count 4.64 10x6/uL (4.32-5.72); White Blood Cell (WBC) Count 8.2 10x3/uL (3.5-10.5)
[2020-11-01 11:06] LABS: Prothrombin Time 10.7 sec (9.5-12.1)
[2020-11-01 11:12] LABS: Anion Gap 13 mmol/L (10-20); BUN (Urea Nitrogen) 14 mg/dL (8.4-25.7); Calc. Creatinine Clearance 0 mL/min (70-130); Calcium 9.1 mg/dL (7.8-10.44); Carbon Dioxide 25 mmol/L (23-31); Chloride 103 mmol/L (98-107); Glucose 114 mg/dL (80-115); Potassium 4.4 mmol/L (3.5-5.1); Sodium 137 mmol/L (136-145)
[2020-11-01 18:58] LABS: SARS-CoV-2 PCR by NAA Not Detected (NotDetected)
== END 2020-11-01 08:55 | disposition home or self-care (01) ==
LOC: LABBT 08:54
PROVIDERS: ATTEND Orthopaedic Surgery
DX: Z01.818 Encounter for other preprocedural examination (principal); Z20.822 Contact with and (suspected) exposure to COVID-19; M12.561 Traumatic arthropathy, right knee; M25.461 Effusion, right knee
CPT/HCPCS: 80048; 85025; 85610; 87635; 93005; 93010; U0003; U0005

== ENCOUNTER 2020-11-01 09:30 | Inpatient (IN) | payer OTHER ==
[2020-11-04] MEDS ORDERED: Tranexamic Acid 1,000 MG/10 ML VIAL ONE (06:13)
[2020-11-04] MEDS ORDERED: Sodium Chloride 0.9% 100 ML ONE (06:13)
[2020-11-04] MEDS ORDERED: Vancomycin 1.5 GRAM/300 ML BAG 1.5 GM in Premix Bag 1 BAG IVPB SCH ×2 (06:30→21:00)
[2020-11-04] MEDS ORDERED: Fentanyl 100 MCG/2 ML VIAL ONE ×5 (07:50→12:13)
[2020-11-04] MEDS ORDERED: Midazolam HCl 2 mg/2 ml Vial ONE (07:51)
[2020-11-04] MEDS ORDERED: PHENYLEPHRINE-NS 100 MCG/ML 10 ML SYRINGE ONE (08:38)
[2020-11-04] MEDS ORDERED: Dexamethasone 20 MG/5 ML VIAL ONE (08:38)
[2020-11-04] MEDS ORDERED: Bupivacaine HCl 0.5%/Epinephrine 1:200,000/PF 30 ml Vial ONE (08:38)
[2020-11-04] MEDS ORDERED: Rocuronium Bromide 10 MG/ML (10ML VIAL) ONE (08:38)
[2020-11-04] MEDS ORDERED: Ondansetron PF 4 MG/2 ML Vial ONE (08:38)
[2020-11-04] MEDS ORDERED: Albuterol Sulfate HFA (OR ONLY) ONE (08:38)
[2020-11-04] MEDS ORDERED: Lidocaine 1% PF 5 ML VIAL ONE (08:38)
[2020-11-04] MEDS ORDERED: PROPOFOL 200 MG/20 ML VIAL ONE (08:38)
[2020-11-04] MEDS ORDERED: ePHEDrine Sulfate 50 MG/10 ML VIAL ONE (08:38)
[2020-11-04] MEDS ORDERED: Fentanyl 100 MCG/2 ML VIAL SLOW IVP PRN (09:50)
[2020-11-04] MEDS ORDERED: Ropivacaine HCl/PF 250 ML in Premix Bag 1 BAG NERVE BLCK SCH (10:00)
[2020-11-04] MEDS ORDERED: traMADol HCl 50 MG TAB PO PRN ×2 (10:00)
[2020-11-04] MEDS ORDERED: Ondansetron PF 4 MG/2 ML Vial IVP PRN (10:00)
[2020-11-04] MEDS ORDERED: Promethazine HCl 25 MG/ML VIAL IM PRN ×2 (10:00→10:33)
[2020-11-04] MEDS ORDERED: Zolpidem Tartrate 5 MG TAB PO PRN (10:00)
[2020-11-04] MEDS ORDERED: HYDROcodone/Acetaminophen 10/325 mg Tablet PO PRN (10:00)
[2020-11-04] MEDS ORDERED: SUGAMMADEX SODIUM 200 MG/2 ML VIAL ONE (10:26)
[2020-11-04] MEDS ORDERED: HYDROmorphone 2 MG/ML VIAL SLOW IVP PRN (10:33)
[2020-11-04] MEDS ORDERED: Ondansetron HCl/PF 4 MG/2 ML Vial IVP PRN (10:33)
[2020-11-04] MEDS ORDERED: Promethazine HCl 25 MG/ML VIAL SLOW IVP PRN (10:33)
[2020-11-04] MEDS ORDERED: diphenhydrAMINE 25 MG CAP PO PRN (11:55)
[2020-11-04] MEDS ORDERED: Acetaminophen 325 MG TAB PO PRN (11:55)
[2020-11-04] MEDS ORDERED: Labetalol HCl 100 MG/20 ML VIAL SLOW IVP SCH (12:00)
[2020-11-04] MEDS ORDERED: Labetalol HCl 100 MG/20 ML VIAL ONE (12:04)
[2020-11-04 13:10] VITALS: BMI 28.0
[2020-11-04] MEDS: Ketorolac Tromethamine 30 MG/ML VIAL IVP SCH ×2 (13:41→18:06)
[2020-11-04] MEDS ORDERED: CEFAZOLIN 2 GM in Premix Bag 1 BAG IVPB SCH (14:00)
[2020-11-04] MEDS: Sodium Chloride 0.9% 1,000 ML IV SCH (14:00)
[2020-11-04] MEDS ORDERED: Dextrose 50% Abboject 50 ML SYRINGE SLOW IVP PRN (14:43)
[2020-11-04] MEDS ORDERED: Dextrose 5% in Water 1,000 ML IV PRN (14:43)
[2020-11-04] MEDS ORDERED: HumaLOG 300 UNITS/3 ML VIAL SC PRN ×2 (14:43)
[2020-11-04] MEDS ORDERED: hydrALAZINE 20 MG/ML VIAL SLOW IVP PRN (14:45)
[2020-11-04] MEDS: CEFAZOLIN 2 GM in Premix Bag 1 BAG IVPB SCH (18:07)
[2020-11-04] MEDS: HYDROcodone/Acetaminophen 10/325 mg Tablet PO PRN ×2 (18:10→22:02)
[2020-11-04] MEDS: Aspirin 81 mg Enteric Coated Tablet PO SCH (21:37)
[2020-11-05] MEDS: Ketorolac Tromethamine 30 MG/ML VIAL IVP SCH ×4 (01:01→18:04)
[2020-11-05] MEDS: CEFAZOLIN 2 GM in Premix Bag 1 BAG IVPB SCH (01:02)
[2020-11-05] MEDS: Sodium Chloride 0.9% 1,000 ML IV SCH ×3 (01:59→20:24)
[2020-11-05] MEDS: HYDROcodone/Acetaminophen 10/325 mg Tablet PO PRN ×6 (02:02→22:37)
[2020-11-05 05:56] LABS: Hemoglobin 12.8 g/dL (14.0-18.0); Mean Corpuscular HGB CONC 33.4 g/dL (32.0-36.0); Mean Corpuscular Hemoglobin 32.8 pg (27.0-31.0); Mean Corpuscular Volume 98.3 fL (78.0-98.0); Mean Platelet Volume 7.5 fL (7.4-10.4); Platelet Count 154 thou/uL (130-400); RBC Distribution Width 12.4 % (11.5-14.5); White Blood Cell (WBC) Count 10.3 thou/uL (4.8-10.8)
[2020-11-05 06:06] LABS: Anion Gap 14 mmol/L (10-20); BUN (Urea Nitrogen) 20 mg/dL (8.4-25.7); Calc. Creatinine Clearance 96 mL/min (70-130); Calcium 7.9 mg/dL (7.8-10.44); Carbon Dioxide 20 mmol/L (23-31); Chloride 101 mmol/L (98-107); Glucose 159 mg/dL (80-115); Potassium 4.4 mmol/L (3.5-5.1); Sodium 131 mmol/L (136-145)
[2020-11-05 06:11] LABS: Band 5 % (5-11); Hemoglobin 12.8 g/dL (14.0-18.0); Hypochromia SLIGHT = 6-15 cells (100X) (0-5/hpf); Lymphocytes 19 % (21-51); MDiff Complete? YES; Mean Corpuscular HGB CONC 34.5 g/dL (32.0-36.0); Mean Corpuscular Hemoglobin 33.9 pg (27.0-31.0); Mean Corpuscular Volume 98.2 fL (78.0-98.0); Mean Platelet Volume 7.8 fL (7.4-10.4); Monocytes 3 % (0-10); Neutrophil 72 % (42-75); Platelet Count 155 thou/uL (130-400); Platelet Morphology Comment Appears Adequate; RBC Distribution Width 12.5 % (11.5-14.5); Reactive Lymphocytes 1 % (0-10); Red Blood Cell (RBC) Count 3.77 mill/uL (4.70-6.10); White Blood Cell (WBC) Count 11.1 thou/uL (4.8-10.8)
[2020-11-05] MEDS ORDERED: HumaLOG 300 UNITS/3 ML VIAL SC PRN (07:41)
[2020-11-05] MEDS: Ferrous Gluconate 324 MG TAB PO SCH ×2 (10:02→18:09)
[2020-11-05] MEDS: Aspirin 81 mg Enteric Coated Tablet PO SCH ×2 (10:02→20:20)
[2020-11-05] MEDS: Senokot S 8.6-50 MG TAB PO SCH ×2 (10:03→20:20)
[2020-11-05] MEDS: Multivitamin W/ Minerals 1 TAB PO SCH (10:04)
[2020-11-05] MEDS ORDERED: Mag-Al 1200 mg/1200 mg/30 ML UDCUP PO PRN (14:30)
[2020-11-05] MEDS ORDERED: Lidocaine 2% Viscous Solution 10 ML, Aluminum & Magnesium Hydroxide 30 ML SSW SCH (23:00)
[2020-11-06 00:15] VITALS: TEMP 97.9
[2020-11-06] MEDS: Calcium Carbonate 500 MG ChewTAB PO SCH ×2 (00:16→06:09)
[2020-11-06] MEDS: Ketorolac Tromethamine 30 MG/ML VIAL IVP SCH ×2 (00:18→06:10)
[2020-11-06] MEDS: HYDROcodone/Acetaminophen 10/325 mg Tablet PO PRN ×2 (03:30→08:02)
[2020-11-06 05:32] LABS: Hemoglobin 12.4 g/dL (14.0-18.0); Mean Corpuscular Hemoglobin 32.4 pg (27.0-31.0); Mean Corpuscular Volume 98.4 fL (78.0-98.0); Mean Platelet Volume 7.4 fL (7.4-10.4); Platelet Count 149 thou/uL (130-400); RBC Distribution Width 12.6 % (11.5-14.5); Red Blood Cell (RBC) Count 3.82 mill/uL (4.70-6.10); White Blood Cell (WBC) Count 10.4 thou/uL (4.8-10.8)
[2020-11-06 07:57] VITALS: BP 157/82
[2020-11-06] MEDS: Senokot S 8.6-50 MG TAB PO SCH (08:02)
[2020-11-06] MEDS: Aspirin 81 mg Enteric Coated Tablet PO SCH (08:02)
[2020-11-06] MEDS: Ferrous Gluconate 324 MG TAB PO SCH (08:12)
[2020-11-06] MEDS: Multivitamin W/ Minerals 1 TAB PO SCH (08:12)
== END 2020-11-06 11:39 | disposition home or self-care (01) | DRG 467 ==
LOC: SJJU 11-04 05:42 → EDSTATUS 11-04 09:30 → SURG A 11-04 12:57
PROVIDERS: ADMIT Orthopaedic Surgery; ATTEND Orthopaedic Surgery
PROC: 0SRC0J9 Replacement of Right Knee Joint with Synthetic Substitute, Cemented, Open Approach (ICD-10-PCS; principal; 2020-11-04)
PROC: 0SPC0JZ Removal of Synthetic Substitute from Right Knee Joint, Open Approach (ICD-10-PCS; 2020-11-04)
DX: T84.53XA Infection and inflammatory reaction due to internal right knee prosthesis, initial encounter (principal); M00.9 Pyogenic arthritis, unspecified; Z20.822 Contact with and (suspected) exposure to COVID-19; E11.9 Type 2 diabetes mellitus without complications; I10 Essential (primary) hypertension; J44.9 Chronic obstructive pulmonary disease, unspecified; G40.909 Epilepsy, unspecified, not intractable, without status epilepticus; F17.210 Nicotine dependence, cigarettes, uncomplicated; Y83.1 Surgical operation with implant of artificial internal device as the cause of abnormal reaction of the patient, or of later complication, without mention of misadventure at the time of the procedure; Z96.643 Presence of artificial hip joint, bilateral; Z79.899 Other long term (current) drug therapy
CPT/HCPCS: 36415; 36416; 80048; 85025; 85027; 85610; 87635; 93005; 93010; C1713; C1776; J0690; J1100; J1885; J2250; J2405; J2704; J3010; J3370; J3490; U0003; U0005

== ENCOUNTER 2020-12-07 13:41 | Outpatient (CLI) | payer OTHER ==
[2020-12-08 01:14] LABS: SARS-CoV-2 PCR by NAA Not Detected (NotDetected)
== END 2020-12-07 13:42 | disposition home or self-care (01) ==
LOC: LABBT 13:41
PROVIDERS: ATTEND Orthopaedic Surgery
DX: Z01.812 Encounter for preprocedural laboratory examination (principal); Z96.651 Presence of right artificial knee joint; Z20.822 Contact with and (suspected) exposure to COVID-19
CPT/HCPCS: 87635; U0003; U0005

== ENCOUNTER 2020-12-09 09:44 | Inpatient (IN) | payer OTHER ==
[2020-12-08 10:23] VITALS: BMI 28.0
[~2020-12-09 09:44] MED LIST: Dexamethasone 20 MG/5 ML VIAL ONE; Ketorolac Tromethamine 30 MG/ML VIAL ONE; Lidocaine 1% PF 5 ML VIAL ONE; Metoclopramide HCl 10 MG/2 ML VIAL ONE; Ondansetron PF 4 MG/2 ML Vial ONE; PROPOFOL 200 MG/20 ML VIAL ONE; Rocuronium Bromide 10 MG/ML (10ML VIAL) ONE
[2020-12-09] MEDS ORDERED: Vancomycin 1.5 GRAM/300 ML BAG 1.5 GM in Premix Bag 1 BAG IVPB SCH ×2 (10:30→22:00)
[2020-12-09] MEDS ORDERED: Fentanyl 100 MCG/2 ML VIAL ONE ×2 (11:56→12:10)
[2020-12-09] MEDS ORDERED: Promethazine HCl 25 MG/ML VIAL IM PRN ×2 (12:49→13:34)
[2020-12-09] MEDS ORDERED: Ondansetron HCl/PF 4 MG/2 ML Vial IVP PRN (12:49)
[2020-12-09] MEDS ORDERED: Promethazine HCl 25 MG/ML VIAL SLOW IVP PRN (12:49)
[2020-12-09] MEDS ORDERED: Naproxen 500 MG TAB PO PRN (12:59)
[2020-12-09] MEDS ORDERED: traMADol HCl 50 MG TAB PO PRN (13:34)
[2020-12-09] MEDS ORDERED: Ondansetron PF 4 MG/2 ML Vial IVP PRN (13:34)
[2020-12-09] MEDS ORDERED: Zolpidem Tartrate 5 MG TAB PO PRN (13:34)
[2020-12-09] MEDS ORDERED: diphenhydrAMINE 25 MG CAP PO PRN (13:34)
[2020-12-09] MEDS ORDERED: Acetaminophen 325 MG TAB PO PRN (13:34)
[2020-12-09] MEDS ORDERED: Fentanyl 100 MCG/2 ML VIAL SLOW IVP PRN (13:34)
[2020-12-09] MEDS: Clindamycin/D5W 900 MG in Premix Bag 1 BAG IVPB SCH ×2 (16:19→21:07)
[2020-12-09] MEDS: Ketorolac Tromethamine 30 MG/ML VIAL IVP PRN (17:08)
[2020-12-09] MEDS: HYDROcodone/Acetaminophen 5/325 mg Tablet PO PRN (17:09)
[2020-12-09] MEDS: buPROPion 75 MG TAB PO SCH (21:08)
[2020-12-09] MEDS: Aspirin 81 mg Enteric Coated Tablet PO SCH (21:08)
[2020-12-09] MEDS: diphenhydrAMINE 50 MG CAP PO SCH (21:08)
[2020-12-10] MEDS: Clindamycin/D5W 900 MG in Premix Bag 1 BAG IVPB SCH ×4 (03:00→20:23)
[2020-12-10] MEDS ORDERED: Aspirin 81 mg Enteric Coated Tablet PO SCH (09:00)
[2020-12-10] MEDS: Senokot S 8.6-50 MG TAB PO SCH ×2 (09:07→20:23)
[2020-12-10] MEDS: buPROPion 75 MG TAB PO SCH ×2 (09:07→20:23)
[2020-12-10] MEDS: Multivitamin W/ Minerals 1 TAB PO SCH (09:07)
[2020-12-10] MEDS: Aspirin 81 mg Enteric Coated Tablet PO SCH ×2 (09:07→20:23)
[2020-12-10] MEDS: Ketorolac Tromethamine 30 MG/ML VIAL IVP PRN ×2 (09:19→20:23)
[2020-12-10] MEDS: HYDROcodone/Acetaminophen 5/325 mg Tablet PO PRN ×3 (09:22→23:45)
[2020-12-10] MEDS: diphenhydrAMINE 50 MG CAP PO SCH (20:23)
[2020-12-11] MEDS: Clindamycin/D5W 900 MG in Premix Bag 1 BAG IVPB SCH ×3 (03:31→14:05)
[2020-12-11] MEDS: buPROPion 75 MG TAB PO SCH ×2 (09:12→20:39)
[2020-12-11] MEDS: Aspirin 81 mg Enteric Coated Tablet PO SCH ×2 (09:12→20:38)
[2020-12-11] MEDS: Senokot S 8.6-50 MG TAB PO SCH ×2 (09:12→20:38)
[2020-12-11] MEDS: Multivitamin W/ Minerals 1 TAB PO SCH (09:13)
[2020-12-11] MEDS: Ketorolac Tromethamine 30 MG/ML VIAL IVP PRN (10:31)
[2020-12-11] MEDS: HYDROcodone/Acetaminophen 5/325 mg Tablet PO PRN (10:32)
[2020-12-11] MEDS: diphenhydrAMINE 50 MG CAP PO SCH (20:39)
[2020-12-12 05:04] LABS: #Eosinphils 0.2 thou/uL (0.0-0.7); #Lymphocytes 1.9 thou/uL (1.20-3.40); #Monocytes 0.9 thou/uL (0.11-0.59); %Basophils 0.5 % (0.0-1.0); %Eosinophils 2.5 % (0.0-10.0); %Lymphocytes 18.7 % (21.0-51.0); %Monocytes 8.8 % (0.0-10.0); %Neutrophils 69.5 % (42.0-75.0); Hemoglobin 12.5 g/dL (14.0-18.0); Mean Corpuscular HGB CONC 32.6 g/dL (32.0-36.0); Mean Corpuscular Hemoglobin 31.5 pg (27.0-31.0); Mean Corpuscular Volume 96.6 fL (78.0-98.0); Mean Platelet Volume 6.1 fL (7.4-10.4); Platelet Count 242 thou/uL (130-400); RBC Distribution Width 13.9 % (11.5-14.5); Red Blood Cell (RBC) Count 3.98 mill/uL (4.70-6.10)
[2020-12-12 06:01] LABS: ALT (SGPT) 9 U/L (8-55); AST (SGOT) 12 U/L (5-34); Albumin 3.4 g/dL (3.4-4.8); Alkaline Phosphatase 84 U/L (40-110); Anion Gap 14 mmol/L (10-20); BUN (Urea Nitrogen) 21 mg/dL (8.4-25.7); Bilirubin, Total 0.4 mg/dL (0.2-1.2); CRP (Inflammatory) 5.95 mg/dL (= or < 0.5); Calc. Creatinine Clearance 95 mL/min (70-130); Calcium 9.4 mg/dL (7.8-10.44); Carbon Dioxide 22 mmol/L (23-31); Chloride 102 mmol/L (98-107); Globulin 4.2 g/dL (2.4-3.5); Glucose 116 mg/dL (80-115); Protein, Total 7.6 g/dL (5.8-8.1); Sodium 134 mmol/L (136-145)
[2020-12-12] MEDS: Aspirin 81 mg Enteric Coated Tablet PO SCH ×2 (08:25→20:19)
[2020-12-12] MEDS: buPROPion 75 MG TAB PO SCH ×2 (08:25→20:19)
[2020-12-12] MEDS: Multivitamin W/ Minerals 1 TAB PO SCH (08:25)
[2020-12-12] MEDS: Senokot S 8.6-50 MG TAB PO SCH ×2 (08:25→20:18)
[2020-12-12] MEDS: diphenhydrAMINE 50 MG CAP PO SCH (20:19)
[2020-12-13] MEDS: Minocycline HCl 50 MG CAP PO SCH ×2 (09:17→20:25)
[2020-12-13] MEDS: Multivitamin W/ Minerals 1 TAB PO SCH (09:18)
[2020-12-13] MEDS: Aspirin 81 mg Enteric Coated Tablet PO SCH ×2 (09:18→20:26)
[2020-12-13] MEDS: Senokot S 8.6-50 MG TAB PO SCH ×2 (09:18→20:25)
[2020-12-13] MEDS: buPROPion 75 MG TAB PO SCH ×2 (09:19→20:25)
[2020-12-13] MEDS: diphenhydrAMINE 50 MG CAP PO SCH (20:25)
[2020-12-14] MEDS: Senokot S 8.6-50 MG TAB PO SCH ×2 (08:46→20:09)
[2020-12-14] MEDS: Minocycline HCl 50 MG CAP PO SCH ×2 (08:46→20:09)
[2020-12-14] MEDS: buPROPion 75 MG TAB PO SCH ×2 (08:46→20:08)
[2020-12-14] MEDS: Multivitamin W/ Minerals 1 TAB PO SCH (08:46)
[2020-12-14] MEDS: Aspirin 81 mg Enteric Coated Tablet PO SCH ×2 (08:46→20:08)
[2020-12-14] MEDS: diphenhydrAMINE 50 MG CAP PO SCH (20:09)
[2020-12-15 07:47] VITALS: BP 124/78; TEMP 97.4
[2020-12-15] MEDS: Minocycline HCl 50 MG CAP PO SCH (08:06)
[2020-12-15] MEDS: buPROPion 75 MG TAB PO SCH (08:06)
[2020-12-15] MEDS: Senokot S 8.6-50 MG TAB PO SCH (08:06)
[2020-12-15] MEDS: Aspirin 81 mg Enteric Coated Tablet PO SCH (08:06)
[2020-12-15] MEDS: Multivitamin W/ Minerals 1 TAB PO SCH (08:06)
[2021-01-09] MEDS ORDERED: PROPOFOL 200 MG/20 ML VIAL ONE (11:58)
[2021-01-09] MEDS ORDERED: Lidocaine 1% PF 5 ML VIAL ONE (11:58)
[2021-01-09] MEDS ORDERED: ePHEDrine Sulfate 50 MG/10 ML VIAL ONE (11:58)
== END 2020-12-15 09:49 | disposition home or self-care (01) | DRG 920 ==
LOC: SDC 09:44 → SJJU 13:33 → EDSTATUS 14:15
PROVIDERS: ADMIT Orthopaedic Surgery; ATTEND Orthopaedic Surgery
PROC: 0HDKXZZ Extraction of Right Lower Leg Skin, External Approach (ICD-10-PCS; principal; 2020-12-09)
PROC: 0H9KXZZ Drainage of Right Lower Leg Skin, External Approach (ICD-10-PCS; 2020-12-09)
DX: T81.31XA Disruption of external operation (surgical) wound, not elsewhere classified, initial encounter (principal); K76.6 Portal hypertension; E11.52 Type 2 diabetes mellitus with diabetic peripheral angiopathy with gangrene; I96 Gangrene, not elsewhere classified; Z96.651 Presence of right artificial knee joint; Z20.822 Contact with and (suspected) exposure to COVID-19; F17.210 Nicotine dependence, cigarettes, uncomplicated; Y83.8 Other surgical procedures as the cause of abnormal reaction of the patient, or of later complication, without mention of misadventure at the time of the procedure; I10 Essential (primary) hypertension; J44.9 Chronic obstructive pulmonary disease, unspecified; K74.60 Unspecified cirrhosis of liver; Z96.643 Presence of artificial hip joint, bilateral; Z83.3 Family history of diabetes mellitus; Z82.49 Family history of ischemic heart disease and other diseases of the circulatory system; Z82.3 Family history of stroke; Z79.899 Other long term (current) drug therapy; Z79.82 Long term (current) use of aspirin
CPT/HCPCS: 36415; 80053; 85025; 86140; J1100; J1885; J2405; J2704; J2765; J3010; J3370; J3490; U0003; U0005

== ENCOUNTER 2022-07-19 12:15 | Emergency (ER) | payer MEDICARE, OTHER | END 2022-07-19 15:24 | disposition home or self-care (01) | LOC: ERS 12:15 | DX: M79.672 Pain in left foot (principal); F17.210 Nicotine dependence, cigarettes, uncomplicated ==

== ENCOUNTER 2022-08-10 17:03 | Outpatient (CLI) | payer OTHER, MEDICARE ==
[2022-08-10 17:46] LABS: #Eosinphils 0.2 10x3/uL (0.0-0.5); #Monocytes 0.6 10x3/uL (0.0-1.1); #Neutrophils 3.8 10x3/uL (1.5-8.4); %Basophils 0.6 % (0.0-2.0); %Eosinophils 2.3 % (0.0-6.0); %Lymphocytes 29.8 % (18.0-47.0); %Monocytes 9.2 % (0.0-10.0); %Neutrophils 57.6 % (40.0-75.0); Hemoglobin 15.4 g/dL (13.5-17.5); Mean Platelet Volume 8.7 fl (7.4-10.4); Platelet Count 189 10x3/uL (150-450); Red Blood Cell (RBC) Count 4.67 10x6/uL (4.32-5.72); White Blood Cell (WBC) Count 6.7 10x3/uL (3.5-10.5)
[2022-08-10 17:56] LABS: Anion Gap 17 mmol/L (10-20); BUN (Urea Nitrogen) 13 mg/dL (8.4-25.7); Calc. Creatinine Clearance 0 mL/min (70-130); Carbon Dioxide 19 mmol/L (23-31); Chloride 102 mmol/L (98-107); Estimated GFR 98; Glucose 85 mg/dL (80-115); Potassium 4.4 mmol/L (3.5-5.1); Sodium 134 mmol/L (136-145)
== END 2022-08-10 17:04 | disposition home or self-care (01) ==
LOC: LABBT 17:03
PROVIDERS: ATTEND Specialist
DX: Z01.818 Encounter for other preprocedural examination (principal); M86.9 Osteomyelitis, unspecified
CPT/HCPCS: 80048; 85025; 93005; 93010

== ENCOUNTER 2022-08-10 17:30 | Inpatient (IN) | payer OTHER ==
[2022-08-17 10:51] VITALS: BMI 28.8
[2022-08-18] MEDS ORDERED: Ketorolac Tromethamine 30 MG/ML VIAL ONE (09:27)
[2022-08-18] MEDS ORDERED: Acetaminophen 500 MG TAB ONE (09:27)
[2022-08-18] MEDS ORDERED: Gabapentin 300 MG CAP ONE (09:27)
[2022-08-18] MEDS ORDERED: Vancomycin 1 GM/200 ML (FROZEN) BAG ONE (09:27)
[2022-08-18] MEDS ORDERED: fentaNYL PF 100 MCG/2 ML SYRINGE ONE (09:50)
[2022-08-18] MEDS ORDERED: Ropivacaine 0.5% HCl/PF (150 MG/30 ML VIAL) ONE ×2 (10:16→10:26)
[2022-08-18] MEDS ORDERED: Midazolam HCl 2 mg/2 ml Vial ONE (10:16)
[2022-08-18] MEDS ORDERED: Fentanyl 100 MCG/2 ML VIAL ONE ×2 (10:16→13:47)
[2022-08-18 10:24] LABS: SARS-CoV-2 NAA Rapid Test Not Detected (NotDetected)
[2022-08-18] MEDS ORDERED: Cefepime 2 GM in Sodium Chloride 0.9% 100 ML IVPB SCH (10:30)
[2022-08-18] MEDS ORDERED: PROPOFOL 200 MG/20 ML VIAL ONE (12:01)
[2022-08-18] MEDS ORDERED: PHENYLEPHRINE-NS 100 MCG/ML 10 ML SYRINGE ONE (12:01)
[2022-08-18] MEDS ORDERED: Ondansetron PF 4 MG/2 ML Vial ONE (12:01)
[2022-08-18] MEDS ORDERED: ePHEDrine 50 MG/ML VIAL ONE (12:01)
[2022-08-18] MEDS ORDERED: Lidocaine 1% PF 5 ML VIAL ONE (12:01)
[2022-08-18] MEDS ORDERED: Ondansetron PF 4 MG/2 ML Vial IVP PRN (13:07)
[2022-08-18] MEDS ORDERED: Ondansetron ODT 4 MG TAB PO PRN (13:07)
[2022-08-18] MEDS ORDERED: Non-Formulary Item 1 EACH (Omeprazole Magnesium [Prilosec Otc] 20 MG Tab) PO PRN (13:12)
[2022-08-18] MEDS ORDERED: HYDROmorphone 0.5 MG/0.5 ML SYRINGE ONE (13:32)
[2022-08-18] MEDS: Gabapentin 300 MG CAP PO SCH ×2 (16:49→20:05)
[2022-08-18] MEDS: Ketorolac Tromethamine 30 MG/ML VIAL IVP SCH ×2 (16:50→23:10)
[2022-08-18] MEDS: Sodium Chloride 0.9% 1,000 ML IV SCH ×2 (16:54→20:13)
[2022-08-18] MEDS ORDERED: TETANUS, DIPHTHERIA TOX,ADULT (TDVAX) 0.5 ML VIAL IM ONE (18:00)
[2022-08-18] MEDS: Morphine 4 MG/ML VIAL SLOW IVP PRN (20:04)
[2022-08-19] MEDS: Morphine 4 MG/ML VIAL SLOW IVP PRN (03:38)
[2022-08-19] MEDS: Ketorolac Tromethamine 30 MG/ML VIAL IVP SCH ×4 (05:38→23:48)
[2022-08-19 06:20] LABS: #Eosinphils 0.1 thou/uL (0.0-0.7); #Lymphocytes 1.5 thou/uL (1.20-3.40); #Monocytes 0.4 thou/uL (0.11-0.59); #Neutrophils 2.6 thou/uL (1.40-6.50); %Basophils 0.4 % (0.0-1.0); %Lymphocytes 31.4 % (21.0-51.0); %Neutrophils 56.2 % (42.0-75.0); Mean Corpuscular HGB CONC 33.4 g/dL (32.0-36.0); Mean Corpuscular Hemoglobin 33.6 pg (27.0-31.0); Mean Platelet Volume 6.3 fL (7.4-10.4); Platelet Count 157 10x3/uL (130-400); RBC Distribution Width 14.4 % (11.5-14.5); Red Blood Cell (RBC) Count 3.26 mill/uL (4.70-6.10); White Blood Cell (WBC) Count 4.6 10x3/uL (4.8-10.8)
[2022-08-19 06:37] LABS: Anion Gap 10 mmol/L (10-20); BUN (Urea Nitrogen) 15 mg/dL (8.4-25.7); Calc. Creatinine Clearance 117 mL/min (70-130); Carbon Dioxide 24 mmol/L (23-31); Chloride 99 mmol/L (98-107); Estimated GFR 99; Glucose 107 mg/dL (80-115); Sodium 129 mmol/L (136-145)
[2022-08-19] MEDS: Gabapentin 300 MG CAP PO SCH ×3 (09:45→21:45)
[2022-08-19] MEDS: HYDROcodone/Acetaminophen 10/325 mg Tablet PO PRN ×3 (14:01→21:46)
[2022-08-20] MEDS: HYDROcodone/Acetaminophen 10/325 mg Tablet PO PRN ×3 (04:19→17:24)
[2022-08-20] MEDS: Ketorolac Tromethamine 30 MG/ML VIAL IVP SCH ×2 (05:31→11:58)
[2022-08-20] MEDS: Polyethylene Glycol 3350 17 GM Packet PO SCH (08:44)
[2022-08-20] MEDS: Gabapentin 300 MG CAP PO SCH ×3 (08:45→20:47)
[2022-08-20] MEDS ORDERED: Acetaminophen 500 MG TAB PO PRN (13:58)
[2022-08-20] MEDS ORDERED: Acetaminophen 500 MG TAB PO SCH (14:00)
[2022-08-20] MEDS: Ibuprofen 600 MG TAB PO PRN (17:25)
[2022-08-21 05:07] VITALS: TEMP 98.3
[2022-08-21] MEDS: HYDROcodone/Acetaminophen 10/325 mg Tablet PO PRN (06:39)
[2022-08-21] MEDS: Ibuprofen 600 MG TAB PO PRN (06:40)
[2022-08-21] MEDS: Gabapentin 300 MG CAP PO SCH (08:26)
[2022-08-21] MEDS: Polyethylene Glycol 3350 17 GM Packet PO SCH (08:26)
[2022-08-21 09:02] VITALS: BP 166/76
== END 2022-08-21 09:40 | disposition home or self-care (01) | DRG 617 ==
LOC: SURG A 08-18 08:42 → SJJU 08-18 15:23
PROVIDERS: ADMIT Specialist; ATTEND Specialist
PROC: 0Y6C0Z3 Detachment at Right Upper Leg, Low, Open Approach (ICD-10-PCS; principal; 2022-08-18)
DX: E11.69 Type 2 diabetes mellitus with other specified complication (principal); E11.52 Type 2 diabetes mellitus with diabetic peripheral angiopathy with gangrene; M86.8X6 Other osteomyelitis, lower leg; Z96.643 Presence of artificial hip joint, bilateral; Z96.651 Presence of right artificial knee joint; F17.210 Nicotine dependence, cigarettes, uncomplicated; Z79.899 Other long term (current) drug therapy; Z79.82 Long term (current) use of aspirin; Z98.890 Other specified postprocedural states; Z82.49 Family history of ischemic heart disease and other diseases of the circulatory system; Z20.822 Contact with and (suspected) exposure to COVID-19; Z82.3 Family history of stroke; Z83.3 Family history of diabetes mellitus
CPT/HCPCS: 36415; 80048; 85025; 88307; J1170; J1650; J1885; J2250; J2270; J2405; J2704; J2795; J3010; J3370-JW; J3490; J7050; L8460; U0002